=== PATIENT | male | born 1985 | race Caucasian/White ===

== ENCOUNTER 2017-07-30 08:53 | Outpatient (CLI) ==
[2014-10-18 17:10] VITALS: BMI 25.6
== END 2017-07-30 08:54 | disposition home or self-care (01) ==
LOC: CAR 08:53
PROVIDERS: ATTEND Nurse Practitioner Family
DX: R00.2 Palpitations (principal)
CPT/HCPCS: 93227

== ENCOUNTER 2018-01-21 09:16 | Outpatient (CLI) ==
[2014-10-18 17:10] VITALS: BMI 25.6
--- NOTE | 2018-01-21 11:52 | MRI ---
EXAM: MRI lumbar spine without IV contrast. DATE: 21 January 2018. HISTORY: Lumbar spinal stenosis. Lumbar radiculopathy. TECHNIQUE: Sagittal and axial T1W and T2W sequences of the lumbar spine along with sagittal IR and c oronal T2W sequences were obtained using 1.2 Sloane magnet. No IV contrast. COMPARISON: LS spine series 08 November 2015. MRI L-spine 10 March 2017. FINDINGS: There are five cle-ftw-llurhzh lumbar vertebra. No lumbar scoliosis is evident. No acute lumbar fracture, subluxation, osseous malignancy, or pars interarticularis defect is demonstrated. Lumbar vertebra are normal in height. Bone marrow signal is normal. Disc desiccation is present at L4-5 and L5-S1. Mild disc space narrowing is detected at L5-S1. Remaining intervertebral discs are normal in height. No acute sacral fracture or stress reaction is identified. SI joints are unremark able. Conus medullaris terminates at L1. Visible spinal cord is normal. No retroperitoneal lymphadenopathy, paraspinal mass, or aortic aneurysm is identified. Paraspinal mu sculature is symmetric bilaterally. Visible portions of the liver, spleen, adrenal glands and left k idney are normal. A T2W bright, T1W dark, 12.6 mm focus in the medial cortex upper pole right kidney is not fully characterized. Segmental analysis: T11-12: Normal. T12-L1: Normal. L1-2: Normal. L2-3: Minor facet arthropathy and dorsal epidural fat cause mild narrowing of the thecal sac. L3-4: Minimal posterior to disc bulge, mild facet arthropathy, and dorsal epidural fat cause mild na rrowing of the thecal sac and mild left foraminal stenosis. L4-5: Small concentric disc bulge (with posterior midline annular fissure), mild facet arthropathy, and minor ligamentum flavum hypertrophy cause mild central canal stenosis, moderate/marked right narr owing at the right foraminal opening, and mild/moderate left foraminal stenosis. L5-S1: Small posterior spondylotic ridge at the L5 inferior endplate, small posterior to foraminal d isc bulge, and minor facet arthropathy cause mild central canal stenosis and moderate narrowing at th e opening to each foramen. IMPRESSIONS: 1. L-spine mild facet arthropathy, minor DDD, and prominent dorsal epidural fat. 2. Mild thecal sac narrowing/central canal stenoses at L2-3, L3-4, L4-5, and L5-S1. 3. Multilevel foraminal stenoses as described. 4. Right renal lesion is likely a benign cortical cyst, but not fully characterized. If this lesion has not been previously evaluated, consider US or cross-sectional imaging (CT scan or MRI without/with IV contrast using alison l protocol) does not extend in lesion analysis.
== END 2018-01-21 09:17 | disposition home or self-care (01) ==
LOC: RAD 09:16
PROVIDERS: ATTEND Nurse Practitioner Family
DX: M48.061 Spinal stenosis, lumbar region without neurogenic claudication (principal)

== ENCOUNTER 2018-08-20 11:12 | Emergency (ER) | payer OTHER ==
[2018-08-20 11:15] VITALS: BP 138/90; TEMP 97; BMI 26.9
[2018-08-20] MEDS ORDERED: TORADOL IM STA (12:26)
--- NOTE | 2018-08-20 13:12 | CT ---
EXAM: CT head without contrast. HISTORY: Headache. Neck pain. Light sensitivity. COMPARISON: 05/29/2016. TECHNIQUE: Multiple axial images of the brain were obtained from the skull base through the vertex w ithout intravenous contrast. Multiplanar reformats were provided. FINDINGS: There is no intracranial hemorrhage or extraaxial collection. The zabala-white differentiat ion is maintained without evidence for acute large vascular territory infarction. The cortical sulci and basal cisterns are well visualized. There is no hydrocephalus, mass effect, or midline shift. Moderate air-fluid level in the left maxillary sinus is incompletely imaged. Large polyp or retentio n cyst noted in the right sphenoid sinus. Otherwise, the paranasal sinuses and mastoid air cells are clear. The calvarium is intact. IMPRESSION: 1. No acute intracranial abnormality. 2. Left maxillary sinusitis.
--- NOTE | 2018-08-20 14:07 | ED.PDOC ---
General ED Provider: Dr. MEKA HERR Chief Complaint: Headache Stated Complaint: Severe global headache. 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 Has intense pain LT posterior shoulder. Denies nausea, vomiting. Time Seen by Physician: 12:05 Mode of Arrival: Walk-In Information Source: Patient Exam Limitations: No limitations Primary Care Provider: DONOVAN WYNNE Nursing and Triage Documentation Reviewed and Agree: Yes Does patient meet sepsis criteria?: No System Inflammatory Response Syndrome: Not Applicable Sepsis Protocol: For patient's 13 years and over: Temp is 96.8 and below OR 101 and greater Pulse >90 BPM Resp >20/minute Acutely Altered Mental Status Are patient's symptoms suggestive of a new infection, such as: -Pneumonia -Skin, Soft Tissue -Endocarditis -UTI -Bone, Joint Infection -Implantable Device -Acute Abdominal Infection -Wound Infection -Meningitis -Blood Stream Catheter Infection -Unknown Neurological Complaint Exam - Headache Complaint/Exam Onset: Gradual Duration: 2 hrs Symptoms Are: Still present Timing: Constant Episodes Lasting: Hours Worst Headache Ever: No Initial Severity: Moderate Current Severity: Moderate Location: Left, Occipital Character: Reports: Pressure Aggravating: Reports: Position change, Bright lights Alleviating: Reports: None Associated Signs and Symptoms: Reports: Nausea, Neck stiffness Related History: Reports: Similar episode Related Surgical History: Reports: None SAH Risk Factors: Reports: None Meningitis Risk Factors: Reports: None Normal Head CT Within Last 12 Months: No Fundoscopic Exam: Present: Normal Findings Papilledema Present: No Temporal Artery Tenderness: Present: None Sinus Tenderness: Present: None TMJ Tenderness: Present: None Glascow Coma Scale (see protocol): 15 Meningeal Signs Positive: No Pain on Passive Flexion-Positive Kernig's: No ROM Limited In: No Limitiations Focal Weakness: Present: None Focal Sensory Loss: Present: None Gait: Normal Nystagmus Present: No [id number]: Normal Findings Differential Diagnoses: Tension Headache Review of Systems - Review Of Systems Constitutional: Reports: No symptoms Eyes: Reports: No symptoms Ears, Nose, Mouth, Throat: Reports: No symptoms Respiratory: Reports: No symptoms Cardiac: Reports: No symptoms GI: Reports: No symptoms : Reports: No symptoms Musculoskeletal: Reports: No symptoms, Back pain, Muscle pain, Muscle stiffness , Neck pain Skin: Reports: No symptoms Neurological: Reports: No symptoms, Headache Endocrine: Reports: No symptoms Hematologic/Lymphatic: Reports: No symptoms All Other Systems: Reviewed and Negative Past Medical History - Past Medical History Previously Healthy: Yes Endocrine: Reports: None Cardiovascular: Reports: None Respiratory: Reports: None, Other (sinus congestion) Hematological: Reports: None Gastrointestinal: Reports: None Genitourinary: Reports: None Neuro/Psych: Reports: None, Migraine, Other (headache) Musculoskeletal: Reports: None Cancer: Reports: None - Surgical History General Surgical History: Reports: None - Family History Family History: Reports: None - Social History Smoking Status: Current some day smoker - Immunizations Tetanus Shot up to Date: No Physical Exam - Physical Exam Appearance: Well-appearing, Well-nourished Pain Distress: Mild Eyes: JOHN, EOMI, Conjunctiva clear ENT: Ears normal, Nose normal, Oropharynx normal Neck: Supple (Tender cervical thoracic region) Respiratory: Airway patent, Breath sounds clear, Breath sounds equal, Respirations nonlabored Cardiovascular: RRR, Pulses normal, No rub, No murmur GI/: Soft, Nontender, No masses, Bowel sounds normal, No Organomegaly Musculoskeletal: Normal strength, ROM intact, No edema, No calf tenderness Skin: Warm, Dry, Normal color Neurological: Sensation intact, Motor intact, Reflexes intact, Cranial nerves intact, Alert, Oriented Psychiatric: Affect appropriate, Mood appropriate Interpretation - Radiology Interpretation Exam Interpreted: CT Scan Xray Comments: lt maxillary sinusitis Critical Care Note - Critical Care Note Total Time (mins): 0 Course - Course Hematology/Chemistry: 08/20/18 12:40 08/20/18 12:40 Orders, Labs, Meds: Lab Review 08/20/18 08/20/18 12:40 12:40 WBC 6.00 RBC 4.84 Hgb 15.2 Hct 43.1 MCV 89.0 MCH 31.4 H MCHC 35.3 RDW Coeff of Jamal 12.0 Plt Count 261 Immature Gran % (Auto) 0.3 Neut % (Auto) 51.7 Lymph % (Auto) 35.7 Baldwin % (Auto) 8.7 Eos % (Auto) 3.3 Baso % (Auto) 0.3 Immature Gran # (Auto) 0.0 Neut # (Auto) 3.1 Lymph # (Auto) 2.1 Baldwin # (Auto) 0.5 Eos # (Auto) 0.2 Baso # (Auto) 0.0 Sodium 139.8 Potassium 4.22 Chloride 105.3 Carbon Dioxide 28.9 Anion Gap 9.82 BUN 11.3 Creatinine 1.04 Estimated GFR (MDRD) 83.00 BUN/Creatinine Ratio 10.86 Glucose 94.3 Calcium 9.61 Total Bilirubin 0.30 AST 28.3 ALT 53.8 H Alkaline Phosphatase 73.9 Total Protein 7.54 Albumin 4.27 Globulin 3.27 Albumin/Globulin Ratio 1.30 Orders Category Date Time Status CBC W/ AUTO DIFF Stat LAB 08/20/18 12:40 Completed CMP [COMPREHENSIVE METABOLIC PANEL] Stat LAB 08/20/18 12:40 Completed Ketorolac Tromethamine [Toradol] MEDS 08/20/18 12:26 Discontinued 30 mg IM ONCE STA CT HEAD W/O CONTRAST Stat RADS 08/20/18 12:24 Completed Medications Discontinued Medications Generic Name Dose Route Start Last Admin Trade Name Freq PRN Reason Stop Dose Admin Ketorolac Tromethamine 30 mg 08/20/18 12:26 08/20/18 12:42 Toradol IM 08/20/18 12:27 30 mg ONCE STA Administration Vital Signs: Temp Pulse Resp BP Pulse Ox 08/20/18 11:13 97.0 F L 77 16 138/90 97 Departure - Departure Time of Disposition: 13:50 Disposition: HOME SELF-CARE Discharge Problem: Sinusitis, Cephalgia Instructions: Sinusitis (ED), Acute Headache (ED), Neck Pain (ED) Condition: Good Pt referred to PMD for follow-up: Yes (1 wk) IPMP verified?: No Additional Instructions: Take meds as directed Warm moist heat to back of neck and forehead daily for relief of pain Prescriptions: Doxycycline Hyclate 100 mg PO BID #28 tablet Fluticasone Propionate [Flonase] 1 spray JOVAN BID #1 btl Ketorolac Tromethamine [Toradol] 10 mg PO Q6H PRN #20 tablet PRN Reason: Headache/neck pain Prednisone 10 mg PO BIDWM #20 tablet Allergies/Adverse Reactions: Allergies cefaclor [From [facility]] Adverse Reaction (Verified 10/18/14 17:22) Penicillins Adverse Reaction (Verified 08/20/18 11:16) REACTION FROM CHILDHOOD Home Medications: Ambulatory Orders Doxycycline Hyclate 100 mg PO BID #28 tablet 08/20/18 Fluticasone Propionate [Flonase] 1 spray JOVAN BID #1 btl 08/20/18 Ketorolac Tromethamine [Toradol] 10 mg PO Q6H PRN #20 tablet 08/20/18 Prednisone 10 mg PO BIDWM #20 tablet 08/20/18 Disposition Discussed With: Patient, Family
== END 2018-08-20 14:13 | disposition home or self-care (01) ==
LOC: ED 11:12
DX: J32.9 Chronic sinusitis, unspecified (principal); R51 Headache; F17.210 Nicotine dependence, cigarettes, uncomplicated
CPT/HCPCS: 36415; 80053; 85025; 96372; 99283

== ENCOUNTER 2022-01-10 21:00 | Observation (INO) ==
[2022-01-10] MEDS ORDERED: ASPIRIN CHEWABLE PO ONE (21:43)
--- NOTE | 2022-01-10 21:43 | ED.PDOC ---
General ED Provider: Dr. LUCY HUNG Chief Complaint: Chest Pain Stated Complaint: Patient is a 36 year old male who comes to the ER with chest pain on the right side that started today. Describes it as Sharp. worse with palpation and inspiration. Denies any fever. Has a chronic cough from smoking. Ashley solitario has a strong family history of CAD with father having 7 MIs before dying from it. Daughter had surgery Tetralogy of Fallot. Time Seen by Provider: 01/10/22 21:30 Mode of Arrival: Walk-In Information Source: Patient Primary Care Provider: DONOVAN WYNNE Nursing and Triage Documentation Reviewed and Agree: Yes Does patient meet sepsis criteria?: No System Inflammatory Response Syndrome: Not Applicable Sepsis Protocol: For patient's 13 years and over: Temp is 96.8 and below OR 101 and greater Pulse >90 BPM Resp >20/minute Acutely Altered Mental Status Are patient's symptoms suggestive of a new infection, such as: -Pneumonia -Skin, Soft Tissue -Endocarditis -UTI -Bone, Joint Infection -Implantable Device -Acute Abdominal Infection -Wound Infection -Meningitis -Blood Stream Catheter Infection -Unknown Cardiovascular Complaint Exam Chest Pain Complaint/Exam Onset: Gradual Duration: 1 day Symptoms Are: Still present Timing: Constant Initial Severity: Moderate Current Severity: Moderate Location: Reports Right anterior Pain Radiates: Reports Back and Right shoulder Character: Reports Sharp Aggravating: Reports Movement and Deep breaths Alleviating: Reports Rest Associated Signs and Symptoms: Denies Diaphoresis, Nausea, Vomiting, Fever, Palpitations, Cough, Hemoptysis, Back pain, Abdominal pain, Dizziness, Short of air, Calf pain or Calf swelling Related History: Reports Similar episode (with he had GERD but this time it is less intense.) Related Surgical History: Reports None History of Healthcare-Acquired Pneumonia: Reports No AMI/ACS Risk Factors: Reports Family history and Smoking TAD Risk Factors: Reports Smoking Pulmonary Embolism Risk Factors: Reports Smoking Prior Care for this Complaint: No Recent Stress Test: No Recent Echo/LV Function: No JVD Present: No Subcutaneous Emphysema Present: No Diminshed Breath Sounds: No Reproducible Chest Wall Pain: Yes Bilateral Pulses Present: Yes Unequal Pulses Noted: No Chest Picture: 1. area of pain and tenderness fully reproducible. If Risk Factors for AMI/ACS Consider: EKG, Cardiac Enzymes and Aspirin Differential Diagnoses: Acute WI, ACS and Chest Wall Pain Quality Indicators For Acute WI or Cardiac Chest Pain: EKG in 10min. Quality Indicator For Non-Traumatic Chest Pain/Syncope: EKG Performed Patient Advised to Stop Smoking: Yes Review of Systems Review Of Systems Constitutional: Reports No symptoms Respiratory: Reports Cough Cardiac: Reports Chest pain GI: Reports No symptoms : Reports No symptoms Musculoskeletal: Reports No symptoms Skin: Reports No symptoms Neurological: Reports No symptoms Endocrine: Reports No symptoms Hematologic/Lymphatic: Reports No symptoms All Other Systems: Reviewed and Negative [facility] Medical History GERD (gastroesophageal reflux disease) Family History FATHER Myocardial infarct Social History Smoking and tobacco status: Current every day smoker Tobacco type: cigarettes Surgical History No pertinent past surgical history Previous back surgery Additional Medical History: Daughter had Teleology of fallot Physical Exam Physical Exam Appearance: Reports Well-appearing Ill-appearing: None Pain Distress: Moderate Eyes: Reports JOHN, EOMI and Conjunctiva clear ENT: Reports Nose normal and Oropharynx normal Neck: Not Examined Respiratory: Reports Airway patent, Breath sounds clear and Breath sounds equal Cardiovascular: Reports RRR and Pulses normal GI/: Reports Soft and Nontender Musculoskeletal: Reports Normal strength, ROM intact and No edema Skin: Reports Warm, Dry and Normal color Neurological: Reports Motor intact, Alert and Oriented Psychiatric: Reports Anxious Interpretation Radiology Interpretation Radiology Interpretation By: Radiologist Radiology Results: Negative (Chest radiograph within normal limits.) Exam Interpreted: CXR EKG Interpretation Time of EKG #1: 21:30 Rate: Ric Rhythm: Sinus Ectopy: None [place]: NL ST Segment: Normal Interpretation: Sinus bradycardia Critical Care Note Critical Care Note Total Critical Care Time (mins): 0 Course Course Hematology/Chemistry: 01/10/22 21:47 01/10/22 21:47 Orders, Labs, Meds: Lab Review 01/10/22 01/10/22 01/10/22 21:47 21:47 21:47 WBC 6.03 RBC 4.61 L Hgb 14.6 Hct 40.5 L MCV 87.9 MCH 31.7 H MCHC 36.0 H RDW Coeff of Jamal 12.9 Plt Count 220 Immature Gran % (Auto) 0.2 Neut % (Auto) 36.2 L Lymph % (Auto) 48.4 Dougherty % (Auto) 9.3 Eos % (Auto) 5.6 Baso % (Auto) 0.3 Neut # (Auto) 2.2 Lymph # (Auto) 2.9 Dougherty # (Auto) 0.6 Eos # (Auto) 0.3 Baso # (Auto) 0.0 Immature Gran # (Auto) 0.0 Sodium 139.0 Potassium 3.91 Chloride 107.9 H Carbon Dioxide 26.2 Anion Gap 8.81 BUN 15.1 Creatinine 0.96 Estimated GFR (MDRD) 90.00 BUN/Creatinine Ratio 15.72 Glucose 94.7 Calcium 9.21 Total Bilirubin 0.48 AST 120.1 H ALT 322.7 H Alkaline Phosphatase 119.0 Total Creatine Kinase 115.4 CK-MB (CK-2) 0.899 CK-MB (CK-2) % 0.7700 Troponin I < 0.012 NT-Pro-B Natriuret Pep Total Protein 7.04 Albumin 4.47 Globulin 2.57 Albumin/Globulin Ratio 1.73 D-Dimer 216.19 SARS CoV-2 RNA Rapid DALILA 01/10/22 01/10/22 01/10/22 21:47 23:00 23:30 WBC RBC Hgb Hct MCV MCH MCHC RDW Coeff of Jamal Plt Count Immature Gran % (Auto) Neut % (Auto) Lymph % (Auto) Dougherty % (Auto) Eos % (Auto) Baso % (Auto) Neut # (Auto) Lymph # (Auto) Dougherty # (Auto) Eos # (Auto) Baso # (Auto) Immature Gran # (Auto) Sodium Potassium Chloride Carbon Dioxide Anion Gap BUN Creatinine Estimated GFR (MDRD) BUN/Creatinine Ratio Glucose Calcium Total Bilirubin AST ALT Alkaline Phosphatase Total Creatine Kinase 99.8 CK-MB (CK-2) CK-MB (CK-2) % Troponin I < 0.012 NT-Pro-B Natriuret Pep 30.900 Total Protein Albumin Globulin Albumin/Globulin Ratio D-Dimer SARS CoV-2 RNA Rapid DALILA Negative Orders Category Date Time Status ADMIT OBSERVATION [PLACE PATIENT OBSERVATION] .TO ADMISSION 01/10/22 23:27 Active MEDSURG (MONITORED BED) EKG-(ED ONLY) Stat CARDIO 01/10/22 21:36 Completed EKG-(IP & OP ONLY) Stat CARDIO 01/11/22 07:00 Ordered INTAKE & OUTPUT Q8HR CARE 01/10/22 23:27 Active IP: INSERT SALINE LOCK ONCE CARE 01/10/22 23:27 Active TELEMETRY MONITORING TELE CARE 01/10/22 23:27 Completed TELEMETRY MONITORING TELE CARE 01/10/22 23:29 Active VITAL SIGNS Q8HR CARE 01/10/22 23:27 Active CARDIAC DIET DIETARY 01/10/22 Breakfast Ordered CBC W/ AUTO DIFF DAILY@0600 LAB 01/11/22 06:00 Ordered CBC W/ AUTO DIFF DAILY@0600 LAB 01/12/22 06:00 Ordered CBC W/ AUTO DIFF Stat LAB 01/10/22 21:47 Completed COMPREHENSIVE METABOLIC PANEL DAILY@0600 LAB 01/11/22 06:00 Ordered COMPREHENSIVE METABOLIC PANEL DAILY@0600 LAB 01/12/22 06:00 Ordered COMPREHENSIVE METABOLIC PANEL Stat LAB 01/10/22 21:47 Completed CREATINE KINASE Q8H LAB 01/10/22 23:30 Completed CREATINE KINASE Q8H LAB 01/11/22 07:30 Ordered CREATINE KINASE Stat LAB 01/10/22 21:47 Completed D-DIMER Stat LAB 01/10/22 21:47 Completed PRO-BNP [NT-PROBNP] Stat LAB 01/10/22 21:47 Completed TROPONIN I Q8H LAB 01/10/22 23:30 Completed TROPONIN I Q8H LAB 01/11/22 07:30 Ordered TROPONIN I Stat LAB 01/10/22 21:47 Completed 0.9 % Sodium Chloride [Saline Flush] MEDS 01/11/22 05:00 Active 1 syr IVF Q8HR Acetaminophen [Tylenol] MEDS 01/10/22 23:27 Active 650 mg PO Q4H PRN Aspirin [Aspirin Chewable] MEDS 01/10/22 21:43 Discontinued 324 mg PO ONCE ONE Aspirin [Aspirin EC] MEDS 01/11/22 08:30 Active 81 mg PO DAILYWM Atropine Sulfate Inj [Atropine Sulfate Pfs] MEDS 01/10/22 23:27 Active 0.5 mg IVP ONCE PRN Enoxaparin Sodium [Lovenox] MEDS 01/10/22 23:30 Discontinued 40 mg SUBCUT ONCE STA Ketorolac Tromethamine [Toradol] MEDS 01/10/22 23:05 Discontinued 30 mg IVP ONCE STA Nitroglycerin [Nitrostat] MEDS 01/10/22 23:27 Active 0.4 mg SL Q5MIN X 3 DOSES PRN Pantoprazole Sodium [Protonix IV] MEDS 01/10/22 23:05 Discontinued 40 mg IVP ONCE ONE Pantoprazole Sodium [Protonix IV] MEDS 01/10/22 23:30 Discontinued 40 mg IVP ONCE ONE RESUSCITATION STATUS Routine OTHERS 01/10/22 23:27 Ordered CHEST, 2 VIEWS PA & LAT Stat RADS 01/10/22 21:36 Completed Medications Generic Name Dose Route Start Last Admin Trade Name Pallavi PRN Reason Stop Dose Admin Acetaminophen 650 mg 01/10/22 23:27 Acetaminophen 325 Mg Tablet PO Q4H PRN Fever >101 Aspirin 81 mg 01/11/22 08:30 Aspirin 81 Mg Tablet.Dr PO DAILYWM MICHAEL Atropine Sulfate 0.5 mg 01/10/22 23:27 Atropine Sulfate Inj 1 Mg/10 Ml Disp.Syrin IVP ONCE PRN Symptomatic Bradycardia Nitroglycerin 0.4 mg 01/10/22 23:27 Nitroglycerin 0.4 Mg Tab.Subl SL Q5MIN X 3 DOSES PRN Chest Pain Sodium Chloride 1 syr 01/11/22 05:00 0.9% Sodium Chloride 10 Ml Disp.Syrin IVF Q8HR MICHAEL Discontinued Medications Generic Name Dose Route Start Last Admin Trade Name Pallavi PRN Reason Stop Dose Admin Aspirin 324 mg 01/10/22 21:43 01/10/22 21:49 Aspirin 81 Mg Tab.Chew PO 01/10/22 21:44 324 mg ONCE ONE Administration Enoxaparin Sodium 40 mg 01/10/22 23:30 01/10/22 23:54 Enoxaparin Sodium 40 Mg/0.4 Ml Syr SUBCUT 01/10/22 23:31 40 mg ONCE STA Administration Ketorolac Tromethamine 30 mg 01/10/22 23:05 01/10/22 23:12 Ketorolac Tromethamine 30 Mg/Ml Vial IVP 01/10/22 23:06 30 mg ONCE STA Administration Pantoprazole Sodium 40 mg 01/10/22 23:05 01/10/22 23:12 Pantoprazole Sodium 40 Mg Vial IVP 01/10/22 23:06 40 mg ONCE ONE Administration Pantoprazole Sodium 40 mg 01/10/22 23:30 01/11/22 00:18 Pantoprazole Sodium 40 Mg Vial IVP 01/10/22 23:31 Not Given ONCE ONE Vital Signs: Temp Pulse Resp BP Pulse Ox 01/10/22 21:01 96.3 F L 70 16 145/75 H 98 CHERYL Risk Score CHERYL Risk Score: Risk Score Odds of by 30D 0 0.1 (0.1-0.2) 1 0.3 (0.2-0.3) 2 0.4 (0.3-0.5) 3 0.7 (0.6-0.9) 4 1.2 (1.0-1.5) 5 2.2 (1.9-2.6) 6 3.0 (2.5-3.6) 7 4.8 (3.8-6.1) Discharge Plan Discharge Patient Disposition: ADMITTED INPATIENT Discharge Problem: Chest pain ED Provider: LUCY HUNG Condition: Fair Physician Progress Note: [Discussed risk of Leaving as we have not determined cause of chest pain. Offered admission to the hospital with cardiology consult. He wanted to go home to his family as he has not one to care for his daughter and to take his to work. understand risk of leaving such as acute WI or . He later decided to stay after sorting out his home issues. ]
[2022-01-10 21:54] LABS: BASOPHILS % (AUTO) 0.3 % (0.0-3.0); EOSINOPHILS # (AUTO) 0.3 K/ul (0.0-0.7); EOSINOPHILS % (AUTO) 5.6 % (0.0-7.0); HEMATOCRIT 40.5 % (42.0-52.0); HEMOGLOBIN 14.6 g/dl (14.0-18.0); IMMATURE GRANULOCYTE % (AUTO) 0.2 % (0.0-5.0); LYMPHOCYTES # (AUTO) 2.9 K/uL (0.60-3.4); LYMPHOCYTES % (AUTO) 48.4 (10.0-50.0); MEAN CORPUSCULAR HEMOGLOBIN 31.7 pg (27.0-31.0); MEAN CORPUSCULAR VOLUME 87.9 fl (80.0-94.0); MONOCYTES # (AUTO) 0.6 K/uL (0.4-2.0); MONOCYTES % (AUTO) 9.3 (0-10); NEUTROPHILS # (AUTO) 2.2 K/ul (2.0-6.9); NEUTROPHILS % (AUTO) 36.2 % (42.2-75.2); PLATELET COUNT 220 10^3/uL (140-440); RDW COEFFICIENT OF VARIATION 12.9 % (11.6-14.8); RED BLOOD COUNT 4.61 10^6/ul (4.70-6.10); WHITE BLOOD COUNT 6.03 K/ul (4.2-10.2)
[2022-01-10 22:06] LABS: ALANINE AMINOTRANSFERASE 322.7 U/L (0-50); ALBUMIN 4.47 g/dL (3.5-5.0); ASPARTATE AMINO TRANSFERASE 120.1 U/L (17-59); BILIRUBIN,TOTAL 0.48 mg/dL (0.2-1.3); BLOOD UREA NITROGEN 15.1 mg/dL (9-20); CALCIUM 9.21 mg/dL (8.4-10.2); CARBON DIOXIDE 26.2 mmol/L (22-30.0); CHLORIDE 107.9 mmol/L (98-107); CREATINE KINASE 115.4 U/L (55-170); CREATININE 0.96 mg/dL (0.60-1.10); GLUCOSE 94.7 mg/dL (74-106); POTASSIUM 3.91 mmol/L (3.5-5.1); TOTAL PROTEIN 7.04 g/dL (6.3-8.2)
[2022-01-10 22:17] LABS: TROPONIN I < 0.012 ng/ml (0.0000-0.120)
[2022-01-10 22:21] LABS: CREATINE KINASE MB 0.899 ng/ml (0.0-2.38)
--- NOTE | 2022-01-10 22:21 | DI ---
EXAM: Chest two views HISTORY: Right-sided chest pain FINDINGS: Normal cardiac and mediastinal contours. Normal pulmonary vasculature. Lungs are clear. No significant abnormality of the bony thorax. IMPRESSION: Chest radiograph within normal limits.
[2022-01-10] MEDS ORDERED: PROTONIX IV IVP ONE ×2 (23:05→23:30)
[2022-01-10] MEDS ORDERED: TORADOL IVP STA (23:05)
[2022-01-10] MEDS ORDERED: TYLENOL PO PRN (23:27)
[2022-01-10] MEDS ORDERED: ATROPINE SULFATE PFS IVP PRN (23:27)
[2022-01-10] MEDS ORDERED: NITROSTAT SL PRN (23:27)
[2022-01-10] MEDS ORDERED: LOVENOX SUBCUT STA (23:30)
[2022-01-11 00:17] LABS: CREATINE KINASE 99.8 U/L (55-170)
[2022-01-11 00:27] LABS: TROPONIN I < 0.012 ng/ml (0.0000-0.120)
[2022-01-11 00:31] VITALS: BMI 26.3
[2022-01-11 05:23] LABS: BASOPHILS % (AUTO) 0.6 % (0.0-3.0); EOSINOPHILS # (AUTO) 0.2 K/ul (0.0-0.7); EOSINOPHILS % (AUTO) 4.9 % (0.0-7.0); HEMATOCRIT 39.1 % (42.0-52.0); HEMOGLOBIN 13.9 g/dl (14.0-18.0); IMMATURE GRANULOCYTE % (AUTO) 0.4 % (0.0-5.0); LYMPHOCYTES # (AUTO) 2.5 K/uL (0.60-3.4); LYMPHOCYTES % (AUTO) 52.6 (10.0-50.0); MEAN CORPUSCULAR HEMOGLOBIN 31.7 pg (27.0-31.0); MEAN CORPUSCULAR HGB CONC 35.5 (31.8-35.4); MEAN CORPUSCULAR VOLUME 89.3 fl (80.0-94.0); MONOCYTES # (AUTO) 0.5 K/uL (0.4-2.0); MONOCYTES % (AUTO) 9.9 (0-10); NEUTROPHILS # (AUTO) 1.5 K/ul (2.0-6.9); NEUTROPHILS % (AUTO) 31.6 % (42.2-75.2); PLATELET COUNT 208 10^3/uL (140-440); RED BLOOD COUNT 4.38 10^6/ul (4.70-6.10); WHITE BLOOD COUNT 4.66 K/ul (4.2-10.2)
[2022-01-11 05:34] LABS: ALBUMIN 4.02 g/dL (3.5-5.0); ALKALINE PHOSPHATASE 119.7 U/L (38-126); ASPARTATE AMINO TRANSFERASE 360.9 U/L (17-59); BILIRUBIN,TOTAL 0.82 mg/dL (0.2-1.3); BLOOD UREA NITROGEN 16.2 mg/dL (9-20); CALCIUM 9.25 mg/dL (8.4-10.2); CARBON DIOXIDE 26.1 mmol/L (22-30.0); CHLORIDE 110.3 mmol/L (98-107); CREATININE 1.07 mg/dL (0.60-1.10); GLUCOSE 105.4 mg/dL (74-106); POTASSIUM 3.64 mmol/L (3.5-5.1); SODIUM 139.1 mmol/L (134.5-145); TOTAL PROTEIN 6.46 g/dL (6.3-8.2)
[2022-01-11 05:38] LABS: ALANINE AMINOTRANSFERASE 450.8 U/L (0-50)
[2022-01-11 07:07] LABS: CHOLESTEROL 260.6 mg/dL (0-200); HDL CHOLESTEROL 29.5 mg/dL (35-60); TRIGLYCERIDES 308.7 mg/dL (0-150)
[2022-01-11 07:51] LABS: AMYLASE 47.9 U/L (30-110); CREATINE KINASE 76.6 U/L (55-170); LIPASE 82.1 U/L (23-300)
[2022-01-11 08:07] LABS: TROPONIN I < 0.012 ng/ml (0.0000-0.120)
--- NOTE | 2022-01-11 08:23 | PCM.PROG ---
Date Seen by Provider: 01/11/22 Time Seen by Provider: 07:55 Subjective: Pt has much improved pain. He now describes more epigastric pain that occasionally radiates to his right shoulder. Denies any N/V/SOB. Objective: Vitals: T=97.9 F, P=71, R=18, ML=650/65, SPO2=96 HEENT: PERRL Neck: supple Lungs: clear CVS: RRR Abdomen: Mild epigastric TTP Neurological: A+O x3 Lab/Tests/Diagnostic Imaging: AST 360, ALT 450 (1) Chest pain: Status: Acute Code(s): R07.9 - Chest pain, unspecified SNOMED Code(s): 95907690 (2) GERD (gastroesophageal reflux disease): Status: Acute Code(s): K21.9 - Gastro-esophageal reflux disease without esophagitis SNOMED Code(s): 387351237 Plan: 1. Chest Pain: Continue cardiac rule out. Repeat Trop i today as well as fasting cholesterol. Consult to Dr. Fierro 2. Epigastric Pain: With the elevated liver enzymes and radiation to the right shoulder, I will add a lipase, amylase and US of the gallbladder as well as Protonix daily.
[2022-01-11] MEDS ORDERED: ASPIRIN EC PO SCH (08:30)
[2022-01-11] MEDS ORDERED: PROTONIX IV IVP SCH (09:00)
[2022-01-11] MEDS: CARAFATE PO SCH ×2 (09:57→11:14)
[2022-01-11 10:37] VITALS: TEMP 97.1
--- NOTE | 2022-01-11 10:47 | US ---
EXAM: Ultrasound abdomen limited right upper quadrant HISTORY: Abdominal pain, elevated liver enzymes COMPARISON: None TECHNIQUE: Limited ultrasound abdomen right upper quadrant was for FINDINGS: Visualized portion pancreas appears normal. Portions of the pancreas obscured secondary b owel gas shadowing. Liver diffusely increased in echogenicity. Main portal vein patent with directi on of flow. Portions of the liver obscured secondary to shadowing artifact. Multiple shadowing gall stones. The gallbladder wall thickening. No pericholecystic fluid. Technologist reports there is n o sonographic Lennon's sign. IMPRESSION: 1. Echogenic liver may relate to hepatic steatosis and/or hepatic parenchymal disease. 2. Cholelithiasis. Nonspecific gallbladder wall thickening, could relate to hepatic parenchymal dis ease. Technologist reports there is no sonographic Lennon's sign.
--- NOTE | 2022-01-11 12:57 | PCM.CONS ---
CONSULTING PROVIDER: Dr. ALISSON CRABTREE ATTENDING PROVIDER: Dr. BRADY TAN DATE OF SERVICE: 01/11/22 SUBJECTIVE: This 36 year old /WHITE M was hospitalized 01/11/22 was seen on consultation because of chest pain. Chest pain is center of the chest more with deep breathing and body movement. No relation with exertion or walking. Visited ER couple of weeks ago with abdominal pain, reflux. The patient is heavy smoker with a lot of coffee and caffeine consumption. On road most of the time. REVIEW OF SYSTEMS: CONSTITUTIONAL: No night sweats. No fatigue, malaise, lethargy. No fever or chills. HEENT: Eyes: No visual changes. No eye pain. No eye discharge. ENT: No runny nose. No epistaxis. No sinus pain. No odynophagia. No congestion. RESPIRATORY: No cough, no congestion. No hemoptysis. No shortness of breath. CARDIOVASCULAR: No angina symptoms. No CHF symptoms. No palpitations. No orthopnea. Chest pain described as above center of the chest. Tightness at rest with more deep breathing related to food intake. Reflux type of symptoms. GASTROINTESTINAL: No abdominal pain. No nausea or vomiting. No diarrhea or constipation. No hematemesis. No hematochezia. GENITOURINARY: No urgency. No frequency. No dysuria. No hematuria. No obstruct franca symptoms. No discharge. No pain. No significant abnormal bleeding. MUSCULOSKELETAL: No musculoskeletal pain; no joint swelling. NEUROLOGICAL: Awake, alert, oriented to time, place and person. No headache. No neck pain. No syncope. No seizures. No dizziness. PSYCHIATRIC: Not anxious. No depression. No suicidal thoughts. No homicidal thoughts. SKIN: No rash. No lesions. No wounds. ENDOCRINE: No unexplained weight loss. No weight gain. HEMATOLOGIC/LYMPHATIC: No anemia. No purpura. No petechiae. No prolonged or excessive bleeding. No palpable lymph nodes. PHYSICAL EXAMINATION: GENERAL: The patient is awake, alert and oriented, lying in bed in no distress. VITAL SIGNS: Temperature 97.9 F, Pulse 71, Respiratory Rate 18, BP 112/65, Pulse Ox 96% HEENT: Head normocephalic, atraumatic. Eyes: Extraocular muscles are intact. Pupils are equal, round and reactive to light and accommodation. Ears: No lesions. Nose appeared normal. Throat: No exudate or erythema. NECK: Supple. No JVD, no carotid bruit. No lymphadenopathy or thyromegaly. LUNGS: Clear to auscultation. Percussion note normal. Chest symmetrical. HEART: S1, S2, no S3. No murmurs. No cyanosis or clubbing. No ascites. Pulses: Dorsalis pedis and posterior tibial pulses +1 to +2 both sides, stron ABDOMEN: Soft. Non-tender. Bowel sounds active. No CVA tenderness. No mass felt. EXTREMITIES: No edema. Full range of motion of all extremities, equal. NEUROLOGIC: No focal deficit. Cranial nerves II through XII are grossly intact. No headache, no double vision or headache. SKIN: Warm and dry. Intact. Turgor-normal. LYMPHATIC: No palpable lymph nodes/no lymphedema. MUSCULOSKELETAL: Normal joints with no swelling. Muscle tone is normal. LAB REVIEW: 01/11/22 05:03 01/11/22 05:03 01/11/22 07:34: Total Creatine Kinase 76.6, Troponin I < 0.012, Amylase 47.9, Lipase 82.1 01/11/22 05:03: Triglycerides 308.7 H, Cholesterol 260.6 H, LDL Cholesterol, Calc 169, VLDL Cholesterol 62 H, HDL Cholesterol 29.5 L, Cholesterol/HDL Ratio 8.8 H 01/11/22 05:03: Sodium 139.1, Potassium 3.64, Chloride 110.3 H, Carbon Dioxide 2 6.1, Anion Gap 6.34, BUN 16.2, Creatinine 1.07, Estimated GFR (MDRD) 79.00, BUN/Creatinine Ratio 15.14, Glucose 105.4, Calcium 9.25, Total Bilirubin 0.82, AST 360.9 H D, ALT 450.8 H D, Alkaline Phosphatase 119.7, Total Protein 6.46, Albumin 4.02, Globulin 2.44, Albumin/Globulin Ratio 1.64 01/11/22 05:03: WBC 4.66, RBC 4.38 L, Hgb 13.9 L, Hct 39.1 L, MCV 89.3, MCH 31.7 H, MCHC 35.5 H, RDW Coeff of Jamal 13.0, Plt Count 208, Immature Gran % (Auto) 0.4, Neut % (Auto) 31.6 L, Lymph % (Auto) 52.6 H, [place] % (Auto) 9.9, Eos % (Auto) 4.9, Baso % (Auto) 0.6, Neut # (Auto) 1.5 L, Lymph # (Auto) 2.5, [place] # (Auto) 0.5, Eos # (Auto) 0.2, Baso # (Auto) 0.0, Immature Gran # (Auto) 0.0 01/10/22 23:30: Total Creatine Kinase 99.8, Troponin I < 0.012 01/10/22 23:00: SARS CoV-2 RNA Rapid DALILA Negative 01/10/22 21:47: NT-Pro-B Natriuret Pep 30.900 01/10/22 21:47: D-Dimer 216.19 01/10/22 21:47: Sodium 139.0, Potassium 3.91, Chloride 107.9 H, Carbon Dioxide 26.2, Anion Gap 8.81, BUN 15.1, Creatinine 0.96, Estimated GFR (MDRD) 90.00, BUN/Creatinine Ratio 15.72, Glucose 94.7, Calcium 9.21, Total Bilirubin 0.48, AST 120.1 H, ALT 322.7 H, Alkaline Phosphatase 119.0, Total Creatine Kinase 115.4, CK-MB (CK-2) 0.899, CK-MB (CK-2) % 0.7700, Troponin I < 0.012, Total Protein 7.04, Albumin 4.47, Globulin 2.57, Albumin/Globulin Ratio 1.73 01/10/22 21:47: WBC 6.03, RBC 4.61 L, Hgb 14.6, Hct 40.5 L, MCV 87.9, MCH 31.7 H , MCHC 36.0 H, RDW Coeff of Jamal 12.9, Plt Count 220, Immature Gran % (Auto) 0.2, Neut % (Auto) 36.2 L, Lymph % (Auto) 48.4, [place] % (Auto) 9.3, Eos % (Auto) 5.6, Baso % (Auto) 0.3, Neut # (Auto) 2.2, Lymph # (Auto) 2.9, [place] # (Auto) 0.6, Eos # (Auto) 0.3, Baso # (Auto) 0.0, Immature Gran # (Auto) 0.0 ASSESSMENT: 1. Chest pain, non cardiac 2. Severe dyslipidemia 3. History of smoking 4. Pepcid discussed with reflux type of symptoms 5. Strong family history of heart disease. Please see below. RECOMMENDATIONS/PLAN: 1. Counseling for smoking done. Advised to quit smoking, alcohol, coffee or caffeine containing products. 2. Agreed with Protonix, will add Carafate 3. Echo and stress echo this afternoon 4. Elevation ALT and AST noted, right upper quadrant ultrasound ordered 5. Telemetry showed no ST-T wave changes. Plan and coordination of the patient's care discussed in the presence of Mystery Shopper and Nurse. CONDITION: Stable Case discussed with attending. SCRIBED BY: JONAH CABRERA Stove Polisher scribed while in presence of service performed by Dr. ALISSON CRABTREE on 01/11/22 ([id number])
--- NOTE | 2022-01-11 13:13 | CONS ---
DATE OF CONSULTATION: 01/11/22 REASON FOR CONSULTATION/HISTORY OF PRESENT ILLNESS: This 36 year old /WHITE M was hospitalized 01/11/22 was seen on consultation because of chest pain. Chest pain is center of the chest more with deep breathing and body movement. No relation with exertion or walking. Visited ER couple of weeks ago with abdominal pain, reflux. The patient is heavy smoker with a lot of coffee and caffeine consumption. On road most of the time. REVIEW OF SYSTEMS: CONSTITUTIONAL: No night sweats. No fatigue, malaise, lethargy. No fever or chills. HEENT: Eyes: No visual changes. No eye pain. No eye discharge. ENT: No sinus drainage. No epistaxis. No sinus pain. No sore throat. No odynophagia. No ear pain. No congestion. RESPIRATORY: No cough, no congestion. No hemoptysis. No shortness of breath. CARDIOVASCULAR: No angina symptoms. No CHF symptoms. No atypical chest pain for CAD. No palpitations. No orthopnea.Chest pain described as above center of the chest. Tightness at rest with more deep breathing related to food intake. Reflux type of symptoms. GASTROINTESTINAL: No abdominal pain. No nausea or vomiting. No diarrhea or constipation. No hematemesis. No hematochezia. GENITOURINARY: No urgency. No frequency. No dysuria. No hematuria. No obstructive symptoms. No discharge. No pain. No significant abnormal bleeding. MUSCULOSKELETAL: No musculoskeletal pain. No joint swelling. NEUROLOGICAL: No headache. No neck pain. No syncope. No seizures. No dizziness. PSYCHIATRIC: Not anxious. No depression. No suicidal thoughts. No homicidal thoughts. SKIN: No rash. No lesions. No wounds. ENDOCRINE: No unexplained weight loss. No weight gain. HEMATOLOGIC/LYMPHATIC: No anemia. No purpura. No petechiae. No prolonged or excessive bleeding. No palpable lymph nodes. MEDICATIONS: Omeprazole Zofran ALLERGIES: Cefaclor Penicillins Iodinated Contrast Media SOCIAL/PERSONAL/FAMILY HISTORY: The patient is and lives with his . He has children. 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 Alcohol socially. No drug abuse. PHYSICAL EXAMINATION: VITAL SIGNS: Temperature 97.9, pulse 71, respiratory rate 18, blood pressure 112/65 and pulse ox 96%. HEENT: Head normocephalic, atraumatic. Eyes: Extraocular muscles are intact. Pupils are equal, round and reactive to light and accommodation. Ears: No lesions. Nose appeared normal. Throat: No exudate or erythema. NECK: Supple. No JVD, no carotid bruit. No lymphadenopathy or thyromegaly. LUNGS: Clear to auscultation. Percussion note normal. Chest symmetrical. HEART: S1, S2, no S3. No murmurs. No cyanosis or clubbing. No ascites. Pulses: Dorsalis pedis and posterior tibial pulses +1 to +2 bilaterally. Pulses are strong in legs. ABDOMEN: Soft. Nontender. Bowel sounds active. No CVA tenderness. No mass felt. EXTREMITIES: No edema. Full range of motion of all extremities, equal. NEUROLOGIC: No focal deficit. Cranial nerves II through XII are grossly intact. No headache, no double vision or headache. SKIN: Not dry. Intact. Turgor - normal. LYMPHATIC: No palpable lymph nodes/no lymphedema. MUSCULOSKELETAL: Normal joints with no swelling. Muscle tone is normal. LABS: WBC 4.66, Hgb 13.9, hct 39.1, MCH 31.7, MCHC 35.5. Sodium 139.1, potassium 3.64, chloride 110.3, bicarb 26.1, BUN 16.2, creatinine 1.07, BUN 15.14, glucose 105.4, AST 360.9, ALT 450.8, total protein 6.46, albumin 4.02, globulin 2.44. D- Dimer 216.19. Chest x-ray Chest radiograph within normal limits. ASSESSMENT: 1. Chest pain, non cardiac 2. Severe dyslipidemia 3. History of smoking 4. Pepcid discussed with reflux type of symptoms 5. Strong family history of heart disease. RECOMMENDATIONS: 1. Counseling for smoking done. Advised to quit smoking, alcohol, coffee or caffeine containing products. 2. Agreed with Protonix, will add Carafate 3. Echo and stress echo this afternoon 4. Elevation ALT and AST noted, right upper quadrant ultrasound ordered 5. Telemetry showed no ST-T wave changes. CONDITION: Stable Case discussed with attending. AMY
--- NOTE | 2022-01-11 14:01 | PCM.DC ---
Final Diagnosis: Acute chest pain Acute Gastritis Elevated liver enzymes Physical Exam Appearance: Well-appearing, No pain distress and Well-nourished Ill-appearing: None Pain Distress: None Eyes: JOHN, EOMI and Conjunctiva clear ENT: Not Examined Neck: Supple Respiratory: Airway patent, Breath sounds clear, Breath sounds equal and Respirations nonlabored Cardiovascular: RRR, Pulses normal, No rub and No murmur GI/: Soft, Nontender, No masses, Bowel sounds normal and No Organomegaly Musculoskeletal: Normal strength, ROM intact, No edema and No calf tenderness Skin: Warm, Dry and Normal color Neurological: Sensation intact, Motor intact, Reflexes intact, Cranial nerves intact, Alert and Oriented Psychiatric: Affect appropriate and Mood appropriate Reason for Hospitalization: Pt was admitted for chest pain Prognosis/Condition at Discharge: Stable Medications at Discharge: Ambulatory Orders Medication Instructions Recorded omeprazole 40 mg capsule,delayed 40 mg PO DAILY 01/10/22 release ondansetron HCl 4 mg tablet 4 mg PO Q8H PRN 01/10/22 Lab/Diagnostics: Elevated liver enzymes and negative trop I. Negative stress Echo and Echo. Education Provided to Patient and Family: Smoking cessation Follow-ups: His primary care physician this week Discharge Disposition: Home Hospital Course: Pt admitted for chest pain. Has cardiac work up which was negative. Was noted to have elevated liver enz so US ordered showing fatty liver and gallstones without choledocholithiasis or infection. Feeling much better prior to discharge. Plan: 1. Chest Pain: Appears to be non cardiac in nature. Can follow up with his PCP or return if symptoms change or worsen. Will need a statin once his liver enzyme elevations resolve. 2. Elevated liver enzymes: Will need to follow up to assure resolution. Continue reflux medications. 3. Smoking: Have encouraged him to stop smoking.
[2022-01-11 14:55] VITALS: BP 121/74
--- NOTE | 2022-01-15 11:22 | STRESSECHO ---
Date of Test: 01/11/2022 Ordering Physician: HOSPITALIST--DR. HUNG/ PCPLeeanne MOFFETT Occupation:[employer]/ [employer] Reason for Exam: CHEST PAIN, FAM HX CAD Smoking History: 3/4 PK/DAY Height: 74" Weight: 205 LBS Current Medications: OMEPRAZOLE Resting EKG: SINUS RHYTHM/ NO ACUTE CHANGES Target Heart Rate: 158/186 S-T SEGMENT STAGE MPH/GRADE HEART RATE BPM BLOOD PRESSURE MMHG RHYTHM +/- ELEVATION DEPRESSION SYMPTOMS AT REST 51 BPM 122/68 MMHG SR X NONE 1 1.7/10% 102 BPM 120/65 MMHG SR X NONE 2 2.5/12% 122 BPM 138/66 MMHG SR X NONE 3 3.4/14% 4 4.2/16% 5 5.0/18% Immediately After 152 BPM SR X FATIGUE Minutes Post Exercise 1" SR X NONE Minutes Post Exercise 5" SR X NONE DURATION OF EXERCISE: 9:41 MAXIMUM HEART RATE REACHED: 152 BPM REASON FOR TERMINATION: FATIGUE 98% OXYGEN SATURATION WITH EXERCISE ON ROOM AIR METS: 12.0 INTERPRETATION: 1. NO EVIDENCE OF ISCHEMIA BY ST-T WAVE 2. NO CHEST PAIN OR DISCOMFORT 3. NO ARRHYTHMIAS 4. BLOOD PRESSURE RESPONSE: NORMAL NORMAL LEFT VENTRICLE CONTRACTILITY--RESTING AND POST EXERCISE MTDD
--- NOTE | 2022-01-15 11:26 | ECHOSTRESS ---
Date of Exam: 01/11/2022 Ordering Physician: PCP-DONOVAN WYNNE Reason for Echo: CHEST PAIN, STRESS TEST--NO ISCHEMIA M-Mode Normal Adult Results LV Dimensions Normal Adult Results AoV Opening excursions >1.6 LVEDD-base- 3.5-5.8 Ao root dimensions 2.0-3.7 LVESD-base- 3.1-4.6 L. Atrium dimensions 1.9-3.8 Post. Wall thickness 0.8-1.1 IV septum (thickness) 0.7-1.2 Post. Wall excursion 0.72-1.3 Septal motion Systolic motion R. Ventricular cavity 1.5-2.0 LVEF 60% Paradoxical septal wall motion 2-D: NORMAL LEFT VENTRICLE CONTRACTILITY--RESTING AND POST EXERCISE M-MODE: MV: AV: TV: PV: CHAMBER SIZE: WALL MOTION: NORMAL LEFT VENTRICLE CONTRACTILITY--RESTING AND POST EXERCISE PERICARDIUM: INTERPRETATION: 1. NORMAL LEFT VENTRICLE CONTRACTILITY--RESTING AND POST EXERCISE MTDD
--- NOTE | 2022-01-15 11:32 | ECHO2D ---
Date of Exam: 01/11/2022 Ordering Physician: PCP-DONOVAN WYNNE/ HOSPITALIST--ANABELL Room #: [id number] Reason for Echo: CHEST PAIN, FAMILY HX CAD M-Mode Normal Adult Results LV Dimensions Normal Adult Results AoV Opening excursions >1.6 >1.6 LVEDD-base- 3.5-5.8 4.8 Ao root dimensions 2.0-3.7 3.6 LVESD-base- 3.1-4.6 L. Atrium dimensions 1.9-3.8 3.9 Post. Wall thickness 0.8-1.1 1.2 IV septum (thickness) 0.7-1.2 1.2 Post. Wall excursion 0.72-1.3 NORMAL Septal motion NORMAL Systolic motion R. Ventricular cavity 1.5-2.0 NORMAL LVEF 60% 67% Paradoxical septal wall motion NORMAL 2-D : 2-D M Mode Echocardiogram was performed using apical four chamber and left parasternal long and short axis views. Mitral, tricuspid and aortic valves appear to be normal. Contractility of the left ventricle seems to be normal, so is the cavity size. Left atrial cavity size and aortic root appear to be normal. There is no pericardial effusion. There is no thrombus noted in the left ventricle or left atrial cavity. M-MODE: MV: NORMAL AV: NORMAL TV: NORMAL PV: CHAMBER SIZE: NORMAL WALL MOTION: NORMAL PERICARDIUM: NORMAL INTERPRETATION: 1. BORDERLINE LEFT VENTRICLE HYPERTROPHY 2. NORMAL LEFT VENTRICLE CONTRACTILITY/ NORMAL LEFT VENTRICLE SIZE 3. NORMAL VALVES MTDD
--- NOTE | 2022-01-15 14:39 | CONS ---
DATE OF SERVICE: 01/11/22 SUBJECTIVE: The patient underwent echocardiogram which revealed borderline left ventricular hypertrophy otherwise normal LV contractility and normal LV size and normal valves. Also underwent stress echo and had no evidence of ischemia by ST-T wave. The patient's METs level were more than 12. He had excellence base tolerance. No arrhythmias. The blood pressure response was appropriate. No change in the EKG noted. His LV contractility at rest was normal and post exercise was normal. The patient's stress echo was negative for ischemia at high level of exercise. The patient's lipid profile is abnormal and he has severe dyslipidemia with family history of heart disease at early age and continued smoking. The patient needs to have his Non-HDL cholesterol goal should be less than 100. It is in short total cholesterol minus HDL should be less than 100. He has abnormal liver profile, he has hepatic steatosis with cholelithiasis which may or may not have anything to do with is abnormal liver profile. In any case the patient may need a hepatitis profile and further workup for his liver disease. The patient needs to be on statins. Discussed the case with attending. The patient is cardiovascular correa stable. The patient's primary physician or Nurse Practitioner is at [facility]. The patient's diet was discussed with the patient and also was discussed about his liver abnormalities and need for Statins. Counseling for smoking was done. The patient denies any alcohol abuse or drug abuse. AMY
== END 2022-01-11 15:00 | disposition home or self-care (01) ==
LOC: ED 21:00 → MEDSURG A 21:00
PROVIDERS: ADMIT Internal Medicine Geriatric Medicine; ATTEND Emergency Medicine
DX: R74.01 Elevation of levels of liver transaminase levels; Z20.822 Contact with and (suspected) exposure to COVID-19; I51.7 Cardiomegaly; R00.0 Tachycardia, unspecified; Z82.49 Family history of ischemic heart disease and other diseases of the circulatory system; E78.5 Hyperlipidemia, unspecified; K80.20 Calculus of gallbladder without cholecystitis without obstruction; K21.9 Gastro-esophageal reflux disease without esophagitis; R05.3 Chronic cough; F17.210 Nicotine dependence, cigarettes, uncomplicated; R07.9 Chest pain, unspecified; R10.9 Unspecified abdominal pain